=== PATIENT | female | born 1960 | race Caucasian/White ===

== ENCOUNTER 2016-11-18 04:39 | Observation (INO) | payer OTHER ==
--- NOTE | 2016-11-18 04:57 | ERPHSYRPT ---
- History of Present Illness Time Seen by Provider: 11/18/16 04:50 Source: patient Physician History: PATIENT AWAKENED FROM SLEEP WITH LEFT SIDED NUMBNESS AT 5AM TODAY. DENIES FACIAL NUMBNESS, UNSTEADY GAIT,SLURRED SPEECH, VISUAL CHANGES. HAS HAD A SLIGHT HEADACHE PAST FEW DAYS. Timing/Duration: day(s) Severity: mild Character of Deficits: altered sensation Deficits: no difficulties Baseline/Normal Cognition: alert oriented x 3 Current Cognition: alert oriented x 3 Baseline Gait: walks w/o assistance Associated Symptoms: headache Allergies/Adverse Reactions: Sulfa (Sulfonamide Antibiotics) Allergy (Verified 11/18/16 05:24) Home Medications: No Reportable Medications [No Reported Medications] 11/18/16 [History] - Review of Systems Constitutional: No Fever, No Chills Eyes: No Symptoms Ears, Nose, & Throat: No Symptoms Respiratory: No Symptoms, No Cough, No Dyspnea Cardiac: No Symptoms, No Chest Pain, No Edema, No Syncope Abdominal/Gastrointestinal: No Symptoms, No Abdominal Pain, No Nausea, No Vomiting, No Diarrhea Genitourinary Symptoms: No Symptoms, No Dysuria Musculoskeletal: No Symptoms, No Back Pain, No Neck Pain Skin: No Symptoms, No Rash Neurological: Headache, No Dizziness, No Focal Weakness, No Sensory Changes Psychological: No Symptoms Endocrine: No Symptoms All Other Systems: Reviewed and Negative - Nursing Vital Signs Nursing Vital Signs: Initial Vital Signs Pulse Rate 72 Respiratory Rate 20 Blood Pressure [Left Arm] 200/90 Pain Intensity 0 - [place] Coma Scale Best Eye Response ([place]): (4) open spontaneously Best Verbal Response ([place]): (5) oriented Best Motor Response ([place]): (6) obeys commands [place] Total: 15 - Physical Exam General Appearance: no apparent distress, alert Eye Exam: bilateral eye: normal inspection, PERRL, EOMI Ears, Nose, Throat Exam: normal ENT inspection, moist mucous membranes Neck Exam: normal inspection, non-tender, supple Respiratory: normal breath sounds, lungs clear, airway intact, No respiratory distress Cardiovascular: regular rate/rhythm, No edema Gastrointestinal: soft, No tenderness, No distention Back Exam: normal inspection Extremity Exam: normal inspection, No pedal edema Peripheral Pulses: carotid (R): 2+, carotid (L): 2+, femoral (R): 2+, femoral (L ): 2+, dorsalis-pedis (R): 2+, dorsalis-pedis (L): 2+ Mental Status: alert, oriented x 3 shoulder sawyer Exam: normal hearing, normal speech, PERRL, tongue midline Coordination/Gait: normal finger to nose, normal gait Motor/Sensory: no motor deficit, sensory deficit (LEFT HEMIHYPOESTHESIA) DTR: bicep (R): 2+, bicep (L): 2+, tricep (R): 2+, tricep (L): 2+, knee (R): 2+ , knee (L): 2+, ankle (R): 2+, ankle (L): 2+ Skin Exam: normal color, warm, dry, No rash SpO2 Interpretation: normal SpO2: 99 - Course EKG Interpreted by Me: RATE, Sinus Rhythm, NORMAL AXIS - CT Exams Head CT Interpretation: Tele-radiologist Report, No/Intracranial Hemorrhag Ordered Tests: Active Orders 24 hr Category Date Time Status Up Ad Christina ROUTINE Activity 11/18/16 06:16 Ordered Admission/Status Order ROUTINE Care 11/18/16 06:14 Ordered Visiting Professor STAT Care 11/18/16 04:53 Active Code Status Order ROUTINE Care 11/18/16 06:14 Ordered EKG-ER Only STAT Care 11/18/16 04:53 Active IV Insertion ROUTINE Care 11/18/16 06:14 Ordered Neuro Checks Q4H Care 11/18/16 06:14 Ordered Oxygen-ED Only NASAL CANNULA 2 lpm Care 11/18/16 04:53 Active Vital Signs Q4H Care 11/18/16 06:14 Ordered Low Sodium Diet 11/18/16 Breakfast Ordered CHEST 1 VIEW (PORTABLE) Stat Exams 11/18/16 04:53 Taken HEAD WITHOUT CONTRAST [CT] Stat Exams 11/18/16 04:53 Taken CBC W DIFF Stat Lab 11/18/16 05:00 Completed CMP Stat Lab 11/18/16 05:00 Completed PROTIME WITH INR Stat Lab 11/18/16 05:00 Completed TROPONIN Q3H Lab 11/18/16 05:00 Completed TROPONIN Q3H Lab 11/18/16 08:00 Ordered TROPONIN Q3H Lab 11/18/16 11:00 Ordered TROPONIN Q3H Lab 11/18/16 14:00 Ordered TROPONIN Q3H Lab 11/18/16 17:00 Ordered Transfer Order Routine Transfer 11/18/16 06:13 Ordered Medication Summary Generic Name Dose Route Start Last Admin Trade Name Sameer PRN Reason Stop Dose Admin Sodium Chloride 1,000 mls @ 50 mls/hr 11/18/16 05:00 11/18/16 06:07 Sodium Chloride 0.9% 1000 Ml IV 12/18/16 04:59 50 mls/hr .Q20H CORIN Administration Discontinued Medications Generic Name Dose Route Start Last Admin Trade Name Sameer PRN Reason Stop Dose Admin Hydralazine HCl 20 mg 11/18/16 05:56 Apresoline 20 Mg/Ml Inj IV 11/18/16 05:57 STAT ONE Hydralazine HCl Confirm 11/18/16 06:04 Apresoline 20 Mg/Ml Inj Administered 11/18/16 06:05 Dose 20 mg .ROUTE .STK-MED ONE Sodium Chloride Confirm 11/18/16 06:05 Sodium Chloride 0.9% 1000 Ml Administered 11/18/16 06:06 Dose 1,000 mls @ ud .ROUTE .STK-MED ONE Lisinopril 10 mg 11/18/16 06:13 Zestril 10 Mg PO 11/18/16 06:14 STAT STA Lorazepam 1 mg 11/18/16 05:55 11/18/16 06:07 Ativan 2 Mg/1 Ml Vial IV 11/18/16 05:56 1 mg STAT ONE Administration Lorazepam Confirm 11/18/16 06:04 Ativan 2 Mg/1 Ml Vial Administered 11/18/16 06:05 Dose 2 mg .ROUTE .STK-MED ONE Lab/Rad Data: Laboratory Result Diagrams 11/18/16 05:00 11/18/16 05:00 Laboratory Results 11/18/16 11/18/16 11/18/16 Range/Units 05:00 05:00 05:00 WBC (4.0-10.5) K/mm3 RBC (4.1-5.4) M/mm3 Hgb (12.0-16.0) gm/dl Hct (35-47) % MCV (78-100) fl MCH (26-32) pg MCHC (32-36) g/dl RDW (11.5-14.0) % Plt Count (150-450) K/mm3 MPV (6-9.5) fl Gran % (36.0-66.0) % Lymphocytes % (24.0-44.0) % Monocytes % (0.0-12.0) % Eosinophils % (0.00-5.0) % Basophils % (0.0-0.4) % Basophils # (0-0.4) INR 1.10 (0.8-3.0) Sodium 142 (136-145) mEq/L Potassium 3.5 (3.5-5.1) mEq/L Chloride 106 (98-107) mEq/L Carbon Dioxide 26.5 (21-32) mEq/L Anion Gap 12.6 (5-15) MEQ/L BUN 11 (9-20) mg/dL Creatinine 0.75 (0.55-1.30) mg/dl Estimated GFR > 60 ML/MIN Glucose 124 H (70-110) MG/DL Calcium 8.6 (8.5-10.1) mg/dL Total Bilirubin 0.9 (0.2-1.0) mg/dL AST 7 L (15-37) U/L ALT 13 (12-78) U/L Alkaline Phosphatase 63 (46-116) U/L Troponin I < 0.017 (0.000-0.056) ng/ml Serum Total Protein 7.3 (6.4-8.2) gm/dL Albumin 3.5 (3.4-5.0) g/dL 11/18/16 Range/Units 05:00 WBC 5.8 (4.0-10.5) K/mm3 RBC 3.72 L (4.1-5.4) M/mm3 Hgb 12.8 (12.0-16.0) gm/dl Hct 39.4 (35-47) % MCV 105.9 H (78-100) fl MCH 34.4 H (26-32) pg MCHC 32.5 (32-36) g/dl RDW 15.4 H (11.5-14.0) % Plt Count 316 (150-450) K/mm3 MPV 9.9 H (6-9.5) fl Gran % 55.1 (36.0-66.0) % Lymphocytes % 32.1 (24.0-44.0) % Monocytes % 9.0 (0.0-12.0) % Eosinophils % 3.5 (0.00-5.0) % Basophils % 0.3 (0.0-0.4) % Basophils # 0.02 (0-0.4) INR (0.8-3.0) Sodium (136-145) mEq/L Potassium (3.5-5.1) mEq/L Chloride (98-107) mEq/L Carbon Dioxide (21-32) mEq/L Anion Gap (5-15) MEQ/L BUN (9-20) mg/dL Creatinine (0.55-1.30) mg/dl Estimated GFR ML/MIN Glucose (70-110) MG/DL Calcium (8.5-10.1) mg/dL Total Bilirubin (0.2-1.0) mg/dL AST (15-37) U/L ALT (12-78) U/L Alkaline Phosphatase (46-116) U/L Troponin I (0.000-0.056) ng/ml Serum Total Protein (6.4-8.2) gm/dL Albumin (3.4-5.0) g/dL - Progress Progress: improved Progress Note: 11/18/16 06:28 PATIENT GIVEN IV NORMAL SALINE 50ML/HR, ATIVAN 1MG IV, BLOOD PRESSURE IMPROVED BP173/84, THE LISINOPRIL 10MG ORALLY Discussed with : Martinez Will see patient in: hospital (observation) (DISCUSSED WITH DR LUNA AT 0615 FOR OBSERVATION) - Departure Time of Disposition: 06:39 Departure Disposition: Observation Clinical Impression: CVA, HYPERTENSION Condition: Stable Critical Care Time: No Referrals: DOCTOR,NO FAMILY [Primary Care Provider] -
[2016-11-18] MEDS ORDERED: Sodium Chloride 0.9% 1000 ML 1,000 ML IV SCH ×2 (05:00→06:15)
[2016-11-18 05:10] LABS: BASOPHIL % 0.3 % (0.0-0.4); Eosinophil % 3.5 % (0.00-5.0); Granulocytes % 55.1 % (36.0-66.0); Lymphocytes % 32.1 % (24.0-44.0); Mean Cell Volume 105.9 fl (78-100); Mean Corpuscular Hemoglobin 34.4 pg (26-32); Mean Platelet Volume 9.9 fl (6-9.5); Platelet Count 316 K/mm3 (150-450); Red Blood Count 3.72 M/mm3 (4.1-5.4); Red Cell Distribution Width 15.4 % (11.5-14.0); White Blood Count 5.8 K/mm3 (4.0-10.5)
[2016-11-18 05:20] LABS: INR 1.1 (0.8-3.0); PROTIME 12.3 SECONDS (9.95-12.35)
[2016-11-18 05:28] LABS: ALBUMIN 3.5 g/dL (3.4-5.0); ALKALINE PHOSPHATASE 63 U/L (46-116); ANION GAP 12.6 MEQ/L (5-15); BILIRUBIN,TOTAL 0.9 mg/dL (0.2-1.0); BLOOD UREA NITROGEN 11 mg/dL (9-20); CHLORIDE 106 mEq/L (98-107); Carbon Dioxide 26.5 mEq/L (21-32); Glucose 124 MG/DL (70-110); Potassium 3.5 mEq/L (3.5-5.1); SGOT/AST 7 U/L (15-37); SGPT/ALT 13 U/L (12-78); SODIUM 142 mEq/L (136-145); Total Protein 7.3 gm/dL (6.4-8.2)
[2016-11-18] MEDS ORDERED: Ativan 2 MG/1 ML VIAL IV ONE (05:55)
[2016-11-18] MEDS ORDERED: APRESOLINE 20 MG/ML INJ IV ONE (05:56)
[2016-11-18] MEDS ORDERED: APRESOLINE 20 MG/ML INJ ONE (06:04)
[2016-11-18] MEDS ORDERED: Ativan 2 MG/1 ML VIAL ONE (06:04)
[2016-11-18] MEDS ORDERED: Sodium Chloride 0.9% 1000 ML 1,000 ML ONE (06:05)
[2016-11-18] MEDS ORDERED: Zestril 10 MG PO STA (06:13)
[2016-11-18] MEDS ORDERED: TYLENOL 325 MG PO PRN (06:14)
[2016-11-18] MEDS ORDERED: Zofran 4 MG/2 ML VIAL IV PRN (06:18)
[2016-11-18] MEDS: Zestril 10 MG PO SCH (07:07)
--- NOTE | 2016-11-18 09:34 | XRAY ---
Indication: Headache and left-sided numbness/tingling. Multiple contiguous axial images obtained through the head without contrast. Comparison: None Minimal periventricular degenerative micro-ischemia bilaterally. No acute intracranial hemorrhage, abnormal extra-axial fluid collection, or mass effect. Fourth ventricle is midline without hydrocephalus. Bony calvarium intact. Visualized paranasal sinuses and mastoid air cells are pneumatized and clear. Impression: Age-appropriate degenerative micro-ischemia. No acute intracranial abnormalities. Comment: Preliminary interpretation was made by [facility]. No critical discrepancy. CT DI 68.15
--- NOTE | 2016-11-18 09:34 | XRAY ---
Indication: Dyspnea. Comparison: None Portable chest demonstrates normal heart and lungs with calcified granulomas. Bony thorax intact with mild osteopenia and degenerative changes. Impression: Nonacute chest with chronic features.
--- NOTE | 2016-11-18 09:42 | HP ---
HISTORY OF PRESENT ILLNESS: This is a 56 year-old woman who presented to the emergency department brought in by her supervisor pastry, Wang. She reports that she woke up at 0400 hours and had some left arm tingling and left leg tingling. She states that 0400 hours is when she usually wakes up. She reports this sensation is starting to ease up. She said it is more noticeable when she is trying to walk. She reports last night she had a headache and took some aspirin. In the evening she ate her supper and fell asleep on the couch and then got back up and had a shower, ate a sandwich and then went to bed about 2130 hours that evening and did have a headache when she went to bed. She denies any history of problems like this in the past. She denies any known health problems but does not ever see a doctor. She reports her mother had history of CVA when she was approximately 54 years old. The patient denies any problems with weakness in her left side. She said the left side just feels kind of heavy. She denies any speech problems. She denies any chewing or swallowing problems. She reports she was able to walk okay. REVIEW OF SYSTEMS: She denies chest pain, no dyspnea, no abdominal pain. No nausea or vomiting. No lower extremity edema. Her headache is gone now. She is anxious as she states she does not like hospitals or doctors. She denies any rashes. No fevers. No dysuria. PAST MEDICAL HISTORY: None. She reports she does not know if she has a history of high blood pressure because she never checks. PAST SURGICAL HISTORY: None. MEDICATIONS: None. ALLERGIES: NKDA. FAMILY HISTORY: Her mother had a CVA approximately at 54 years of age and a history of shingles. Her father is and had prostate cancer. PHYSICAL EXAMINATION: VITAL SIGNS: She does not have a temperature recorded yet. Heart rate 72, respiratory rate 16 to 20, blood pressure 168 to 200 over 72 to 90, weight 97.5 kg. Oxygen saturation 98 to 99% on room air. GENERAL: The patient is a pleasant lady who is anxious and tearful at times lying in bed and in no acute distress. She is alert and oriented. . CVS: She has a regular rate and rhythm. No murmurs, gallops, rubs or carotid bruits are appreciated. CHEST: Clear to auscultation bilaterally. No crackles or wheezes. ABDOMEN: Soft, nontender, nondistended with normal bowel sounds. NEURO: Cranial nerves II-XII were intact. Strength 5/5 in all four extremities. Normal finger to nose and heel to iqbal. EXTREMITIES: No clubbing, cyanosis or edema. LABORATORY DATA AND TESTS: Her glucose is 124. Troponin was negative. CMP within normal limits. White blood cell count and PLT count were normal. EKG was normal sinus rhythm with no ST or T wave changes. Head CT was read as normal per the teleradiologist. ASSESSMENT AND PLAN: 1) Transient ischemic attack. We placed her on telemetry and ask for telemedicine neurology consult. She has been started on aspirin 81 mg p.o. daily, will check carotid Doppler's and cardiac echo as well as a fasting lipid profile, glucose, hemoglobin A1C and TSH. 2) High blood pressure. She was given hydralazine 20 mg IV once in the emergency room and started on lisinopril 10 mg daily, will plan to continue with this and monitor her blood pressure carefully. 3) Anxiety. I have ordered Xanax as needed because she is extremely anxious.
[2016-11-18] MEDS ORDERED: BABY ASPIRIN 81 MG CHEW PO SCH (10:00)
--- NOTE | 2016-11-18 11:53 | XRAY ---
Indication: TIA. Two-dimensional sonogram and color Doppler imaging of the carotid arteries of the neck performed. Comparison: None Examination of the right carotid circulation demonstrates minimal soft plaquing in the proximal internal and external carotid arteries without critical stenosis/obstruction. PSV of the CCA is 115 cm/s. PSV of the ICA is 100 cm/s. ICA/CCA ratio is 0.9. Normal antegrade vertebral artery flow. Examination of the left carotid circulation demonstrates minimal heterogeneous plaquing at the origin of the external carotid artery and soft plaquing in the distal internal carotid artery. PSV of the CCA is 99 cm/s. PSV of the ICA is 74 cm/s. ICA/CCA ratio is 0.7. Normal antegrade vertebral artery flow. Impression: Minimal arteriosclerotic plaquing bilaterally without critical stenosis/obstruction. Velocity measurements and ratios are also negative for hemodynamically significant flow-limiting stenosis.
--- NOTE | 2016-11-18 15:21 | XRAY ---
Indication: Left arm and leg tingling. Headache. Possible stroke. Sagittal, coronal, and axial MRI brain was performed using pre-and post T1, T2, FLAIR, diffusion, and ADC sequences. 20 cc Magnevist contrast use. Comparison: None Ventriculosulcal pattern appears symmetric. There are bilateral Virchow Tomas spaces, a normal variant. Tiny T2 signal intensities in the periventricular white matter bilaterally favor degenerative micro-ischemia. No acute intracranial hemorrhage, abnormal extra-axial fluid collection, or mass effect. Diffusion images are negative for restricted signal. Following gadolinium, there is no abnormal enhancing intra-or extra-axial mass. 7/8 cranial nerve complex bilaterally symmetric. Normal flow void signal within the major intracerebral circulation. Normal-appearing craniocervical junction and sella turcica. 13 mm polyp versus retention cyst in the floor of the right maxillary sinus. Minimal left maxillary sinus mucosal thickening. Orbits are symmetric. Incidental prominent adenoids. Impression: 1. Minimal degenerative micro-ischemia within normal limits for patient's age. 2. No acute intracranial abnormalities or evidence for evolving large vessel territorial stroke. 3. Negative contrast exam. 4. Incidental paranasal sinus disease and prominent adenoids.
[2016-11-18] MEDS: xanAX 0.5 MG PO PRN ×2 (15:25→21:50)
[2016-11-18 15:32] LABS: Collection Type CCMS
[2016-11-18 15:33] LABS: Bacteria FEW /HPF (NEGATIVE); COMPLETE URINE MICROSCOPIC? YES; Epithelial Cells RARE /HPF (FEW)
[2016-11-18] MEDS ORDERED: LIPITOR 40MG PO SCH (22:00)
[2016-11-19 07:49] VITALS: BP 132/62; PULSE 65; O2SAT 95
[2016-11-19] MEDS: Zestril 10 MG PO SCH (08:56)
--- NOTE | 2016-11-19 09:08 | PCM.DCORD ---
- Discharge Discharge Date: 11/19/16 Disposition: Home, Self-Care Condition: Good Prescriptions: New Aspirin 81 mg PO DAILY #30 tablet Atorvastatin Calcium 80 mg PO QHS #30 tablet Lisinopril 10 mg [Zestril 10 MG] 10 mg PO DAILY #30 tablet Follow up with: JHONNY LUNA [ACTIVE STAFF] - 1 Week
[2016-11-19] MEDS ORDERED: ECOTRIN 81 MG PO SCH (10:00)
--- NOTE | 2016-11-19 11:51 | DS ---
DISCHARGE DIAGNOSES: 1) TRANSIENT ISCHEMIC ATTACK. 2) HYPERTENSION. DISCHARGE PHYSICAL EXAMINATION: VITALS: Temperature current 98.0F, temperature max 98.5F, heart rate 65 to 78, respiratory rate 16 to 20, blood pressure 125 to 140 over 57 to 68. Oxygen saturation 95 to 96% on room air. GENERAL: The patient is a pleasant lady sitting up in bed in no acute distress. CVS: She has a regular rate and rhythm. No murmurs, gallops or rubs. CHEST: Clear to auscultation bilaterally. No crackles or wheezes. ABDOMEN: Soft, nontender, nondistended with normal bowel sounds. EXTREMITIES: No clubbing, cyanosis or edema. NEUROLOGIC: Cranial nerves II-XII intact. Strength 5/5 in all four extremities. Normal finger to nose bilaterally. HOSPITAL COURSE: 1) Transient ischemic attack. The telemedicine neurologist was consulted and saw her. They recommended starting atorvastatin 80 mg every evening which was started. Her fasting lipid panel was checked and her LDL was slightly elevated at 101. She was started on aspirin 81 mg daily. She reports the little heaviness or numbness in her left side has gone away. MRI of her head was without any evidence of evolving stroke or old stroke. She had carotid Doppler's which revealed minimal atherosclerotic plaque bilaterally without critical stenosis or obstruction. She had cardiac echo done however there is no report back on this at the time of her discharge. 2) Hypertension: She was started on lisinopril 10 mg p.o. daily and this was continued during her hospitalization. On this her blood pressure was much better controlled. DISCHARGE MEDICATIONS: Atorvastatin 80 mg p.o. q.h.s., aspirin 81 mg p.o. daily and lisinopril 10 mg p.o. daily. FOLLOW UP: She will follow up with me in the clinic this coming week. DISPOSITION: The patient was discharged home in good condition.
--- NOTE | 2016-11-19 12:39 | ECHO ---
DATE: 11/18/16 INDICATION: Transient ischemic attack. The M-mode, 2D, and Doppler echocardiogram including color flow Doppler shows accentuated contractility of the left ventricle with an ejection fraction calculated at 75%. No thrombus is noted. There is mild tricuspid regurgitation present. The right ventricular systolic pressure is calculated to be 25 mm Hg which is normal. The aortic root is normal with the dimension of 3.4 cm. The left ventricle is normal in size with the dimension of 4.6 cm. The left atrium is normal with the dimension of 3.6 cm. There is mild concentric left ventricular hypertrophy with a septal wall thickness of 1.4 cm and left ventricular posterior wall thickness of 1.5 cm. The aortic valve opens well and is trileaflet. There is a trace amount of pulmonic regurgitation. The pulmonic valve is not well visualized. There is mild tricuspid regurgitation. The right atrium is normal in size. The interatrial septum is intact. There is no pericardial effusion. The right ventricular systolic pressure is calculated to be 22 mm Hg which is normal. IMPRESSION: 1. NORMAL CONTRACTILITY OF THE LEFT VENTRICLE. 2. MILD CONCENTRIC LEFT VENTRICULAR HYPERTROPHY. 3. MILD TRICUSPID REGURGITATION WITH A NORMAL RIGHT VENTRICULAR SYSTOLIC PRESSURE. 4. TRACE AMOUNT OF PULMONIC REGURGITATION.
== END 2016-11-19 09:40 | disposition home or self-care (01) ==
LOC: ED 04:39 → MED SURG 08:38
PROVIDERS: ADMIT Internal Medicine; ATTEND Internal Medicine
DX: G45.9 Transient cerebral ischemic attack, unspecified (principal); I10 Essential (primary) hypertension
CPT/HCPCS: 36000; 36415; 70450; 70553; 71010; 80053; 80061; 81000; 83036; 83721; 84443; 84484; 85025; 85610; 93005; 93041; 93268; 93306; 93880; 96360; 96361; 96375; 99284; G0378; J0360; J2060